=== PATIENT | female | born 2000 | race Caucasian/White ===

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

== ENCOUNTER 2018-09-22 21:14 | Emergency (ER) | payer OTHER | END 2018-09-22 21:32 | LOC: E/R 21:14 | DX: Z02.89 Encounter for other administrative examinations (principal) | CPT/HCPCS: 99283 ==